=== PATIENT | male | born 1965 | race Hispanic/Latino ===

== ENCOUNTER 2021-08-23 03:16 | Emergency (ER) | payer OTHER ==
[2021-08-23 03:54] LABS: BARBITURATE SCREEN, URINE NEGATIVE (NEGATIVE); BENZODIAZEPINES SCREEN,URINE NEGATIVE (NEGATIVE); CANNABINOID SCREEN,URINE NEGATIVE (NEGATIVE); COCAINE SCREEN,URINE NEGATIVE (NEGATIVE); OPIATE SCREEN,URINE NEGATIVE (NEGATIVE); PHENCYCLIDINE SCREEN,URINE NEGATIVE (NEGATIVE)
[2021-08-23 04:10] LABS: BASOPHILS % (AUTO) 0.6 % (0.0-5.0); EOSINOPHILS % (AUTO) 2.3 % (0.0-8.0); HEMATOCRIT 41.7 % (42-54); LYMPHOCYTES % (AUTO) 10.3 % (21.0-51.0); MEAN CORPUSCULAR HEMOGLOBIN 29.3 pg (27.0-33.0); MEAN CORPUSCULAR HGB CONC 34.5 g/dL (32.0-36.0); MEAN CORPUSCULAR VOLUME 84.9 fL (79-99); MONOCYTES % (AUTO) 5.8 % (3.0-13.0); NEUTROPHILS % (AUTO) 80.5 % (40.0-77.0); PLATELET COUNT (AUTO) 177 K/uL (130-400); RED BLOOD CELL COUNT(AUTO) 4.91 MIL/uL (4.50-6.20); RED CELL DISTRIBUTION WIDTH 12.2 % (11.0-15.5); WHITE BLOOD COUNT (AUTO) 11.1 K/uL (4.8-10.8)
[2021-08-23 04:10] LABS: APPEARANCE,URINE CLEAR (CLEAR); BILIRUBIN,URINE NEGATIVE (NEGATIVE); COLOR,URINE YELLOW (YELLOW); LEUKOCYTE ESTERASE ,URINE NEGATIVE (NEGATIVE); NITRATE,URINE NEGATIVE (NEGATIVE); OCCULT BLOOD,URINE NEGATIVE (NEGATIVE); PROTEIN,URINE TRACE mg/dL (NEGATIVE)
[2021-08-23 04:21] LABS: POTASSIUM 3.9 mmol/L (3.5-5.1)
[2021-08-23 04:28] LABS: ALBUMIN 3.6 g/dL (3.5-5.0); BILIRUBIN,TOTAL 0.5 mg/dL (0.2-1.0); TOTAL PROTEIN, SERUM 7.2 g/dL (6.0-8.3)
[2021-08-23 04:47] LABS: GLUCOSE, URINE (UA) >=1000 mg/dL (NEGATIVE); KETONES,URINE 15 mg/dL (NEGATIVE)
[2021-08-23 05:24] LABS: AMPHET/METH SCREEN,URINE NEGATIVE (NEGATIVE)
[2021-08-23] MEDS: MECLIZINE HCL 25 MG TABLET PO ONE (05:52)
[2021-08-23] MEDS: 0.9%NACL 1000ML 1,000 ML IV ONE (05:52)
[2021-08-23 06:15] LABS: PROTHROMBIN TIME 10.9 SEC (9.6-11.6)
[2021-08-23 06:16] LABS: PARTIAL THROMBOPLASTIN TIME 25.7 SEC (26.3-35.5)
[2021-08-23] MEDS ORDERED: MECL-160 PO (06:55)
[2021-08-23] MEDS ORDERED: PRED20TA3 PO (06:55)
[2021-08-23] MEDS: SOLU-MEDROL 125MG VIAL IVP ONE (06:59)
[2021-08-23 07:39] VITALS: BP 122/74
== END 2021-08-23 07:39 | disposition home or self-care (01) ==
LOC: EDH 03:16
DX: H81.10 Benign paroxysmal vertigo, unspecified ear (principal); E11.65 Type 2 diabetes mellitus with hyperglycemia; Z20.822 Contact with and (suspected) exposure to COVID-19
CPT/HCPCS: 36415; 80053; 80305; 81003; 84484; 85025; 85610; 85730; 87635; 87880; 93005; 96361; 96374; 99284; C9803; J2930; J7030

== ENCOUNTER 2022-03-08 19:18 | Emergency (ER) | payer BC, OTHER ==
[~2022-03-08] VITALS: Ht 177.8 cm; Wt 85.7 kg
[~2022-03-08 19:18] MED LIST: MECL-160 PO; PRED20TA3 PO
[2022-03-08] MEDS ORDERED: IBUPROFEN 800 MG TAB PO ONE (21:00)
[2022-03-08] MEDS ORDERED: BENZONATATE 100 MG CAPSULE PO SCH (22:00)
[2022-03-08] MEDS ORDERED: AZIT250T9 PO (22:00)
[2022-03-08] MEDS ORDERED: BENZ200C53 PO (22:00)
[2022-03-08] MEDS ORDERED: ALBU90AE2 IH (22:01)
[2022-03-08 22:13] VITALS: BP 127/64
== END 2022-03-08 22:18 | disposition home or self-care (01) ==
LOC: EDH 19:18
DX: J20.9 Acute bronchitis, unspecified (principal); R50.9 Fever, unspecified; B34.9 Viral infection, unspecified; Z20.822 Contact with and (suspected) exposure to COVID-19
CPT/HCPCS: 99283; 71046; 87635; 87880; 87804 ×2; C9803